=== PATIENT | female | born 1945 | race Caucasian/White ===

== ENCOUNTER → 2021-04-30 | Outpatient (CLI) | payer MEDICARE ==
[2021-04-30 13:33] LABS: INR 2.35 (0.85-1.15); PROTHROMBIN TIME 23.7 SEC (9.6-11.6)
== END | disposition home or self-care (01) ==
LOC: LAB 12:19
PROVIDERS: ATTEND Nurse Practitioner
DX: Z79.01 Long term (current) use of anticoagulants (principal)
CPT/HCPCS: 36415; 85610